=== PATIENT | male | born 1945 | race American Indian/Alaskan Native ===

== ENCOUNTER 2016-04-30 15:44 | Inpatient (IN) | payer MEDICARE ==
[2016-04-30 17:36] LABS: Basophils % (Auto) 0.8 % (0.0-1.8); Eosinophils % (Auto) 0.6 % (0.0-4.3); Hematocrit 33.8 % (35.5-45.6); Hemoglobin 10.9 gm/dl (11.8-15.2); Mean Corpuscular HGB Conc 32 % (32-34); Mean Corpuscular Hemoglobin 39 pg (28-32); Platelet Count 257 K/mm3 (140-440); Red Blood Count 2.77 M/mm3 (3.65-5.03); White Blood Count 5.1 K/mm3 (4.5-11.0)
[2016-04-30 17:44] LABS: Mean Corpuscular Volume 122 fl (84-94); Red Cell Distribution Width 23.1 % (13.2-15.2)
[2016-04-30 17:52] LABS: Anion Gap 23 mmol/L; Blood Urea Nitrogen 21 mg/dL (9-20); Calcium 8.4 mg/dL (8.4-10.2); Carbon Dioxide 21 mmol/L (22-30); Chloride 105.6 mmol/L (98-107); Glucose 184 mg/dL (75-100); Sodium 145 mmol/L (137-145)
[2016-04-30 18:22] LABS: Bilirubin,Urine NEG (Negative); Blood,Urine NEG (Negative); Ketones,Urine NEG (Negative); Leukocyte Esterase,Urine NEG (Negative); Mucus,Urine 2+ /HPF; Nitrite,Urine NEG (Negative)
[2016-04-30] MEDS ORDERED: DILAUDID IV ONE (23:00)
[2016-04-30] MEDS ORDERED: NITRO-BID 2% TP ONE (23:20)
[2016-04-30] MEDS ORDERED: CATAPRES PO ONE (23:20)
--- NOTE | 2016-04-30 23:21 | Emergency Department Report ---
ED Shortness of Breath HPI - General Chief Complaint: Extremity Problem,Nontraumatic Stated Complaint: LEGS SWOLLEN Time Seen by Provider: 04/30/16 22:57 Source: patient Mode of arrival: Ambulatory Limitations: No Limitations - History of Present Illness Initial Comments: 70-year-old male with a past medical history hypertension presents to the hospital with lower extremity edema for several days. Patient has a history of hypertension but has been off all meds for several years. Patient complains of chronic shortness of breath with exertion and while sleeping. Patient sleeps on 4 pillows at night chronically. Contrary to triage patient denies chest pain to me but does complain of symptoms is 10 leg pain worse with palpation. No present nausea, vomiting, headache, or diaphoresis. Positive cough on occasion. PMD: None. - Related Data Allergies Allergy/AdvReac Type Severity Reaction Status Date / Time No Known Allergies Allergy Unverified 04/30/16 16:49 ED Review of Systems ROS: Stated complaint: LEGS SWOLLEN Other details as noted in HPI Comment: All other systems reviewed and negative Other: Constitutional: No fevers chills Eyes: No eye pain visual changes ENT: No ear pain or throat pain Neck: Denies pain Respiratory: Denies wheezing Cardiovascular: Denies chest pain, palpitations GI: Denies abdominal pain, nausea, vomiting, diarrhea : Denies dysuria, urinary frequency, or urgency Musculoskeletal: as per hpi Skin: Denies rash, lesions, erythema Neurologic: Denies headache, numbness, weakness Psychiatric: Denies suicidal ideation, hallucinations ED Past Medical Hx - Past Medical History Previous Medical History?: Yes Hx Hypertension: Yes - Surgical History Past Surgical History?: Yes Additional Surgical History: right leg - Social History Smoking Status: Current Every Day Smoker Substance Use Type: Alcohol ED Physical Exam - General Limitations: No Limitations - Other Other exam information: General: No limitations, patient is alert in no acute distress Head exam: Atraumatic, normocephalic Eyes exam: Normal appearance, pupils equal reactive to light, extraocular movements intact ENT: Moist mucous membrane, normal oropharynx Neck exam: Normal inspection, full range of motion, no meningismus nontender Respiratory exam: No tachypnea or accessory muscle use. Diminished breath sounds right base crackles on the right base Cardiovascular: Normal rate and rhythm, normal heart sounds Abdomen: Soft, nondistended, and nontender, with normal bowel sounds, no rebound, or guarding Extremity: Full range of motion, 2+ pitting edema extending upward to the knee. Back: Normal Inspection, full range of motion, no tenderness Neurologic: Alert, oriented x3, cranial nerves intact, no motor or sensory deficit Psychiatric: normal affect, normal mood Skin: Warm, dry, intact ED Course Vital Signs 04/30/16 16:42 Pulse Rate 95 H Respiratory 20 Rate Blood Pressure 182/125 O2 Sat by Pulse 100 Oximetry - Reevaluation(s) Reevaluation #1: 05/01/16 00:24 Patient treated with nitroglycerin paste, clonidine 0.1 mg by mouth, and Lasix 40 mg IV ED Medical Decision Making - Lab Data Result diagrams: 04/30/16 17:16 04/30/16 17:16 Lab Results 04/30/16 04/30/16 04/30/16 Range/Units 17:08 17:16 17:16 WBC 5.1 (4.5-11.0) K/mm3 RBC 2.77 L (3.65-5.03) M/mm3 Hgb 10.9 L (11.8-15.2) gm/dl Hct 33.8 L (35.5-45.6) % MCV 122 H (84-94) fl MCH 39 H (28-32) pg MCHC 32 (32-34) % RDW 23.1 H (13.2-15.2) % Plt Count 257 (140-440) K/mm3 Lymph % (Auto) 32.2 (13.4-35.0) % [place] % (Auto) 7.0 (0.0-7.3) % Eos % (Auto) 0.6 (0.0-4.3) % Baso % (Auto) 0.8 (0.0-1.8) % Lymph # 1.7 (1.2-5.4) K/mm3 [place] # 0.4 (0.0-0.8) K/mm3 Eos # 0.0 (0.0-0.4) K/mm3 Baso # 0.0 (0.0-0.1) K/mm3 Seg Neutrophils % 59.4 (40.0-70.0) % Seg Neutrophils # 3.0 (1.8-7.7) K/mm3 Sodium 145 (137-145) mmol/L Potassium 5.0 (3.6-5.0) mmol/L Chloride 105.6 (98-107) mmol/L Carbon Dioxide 21 L (22-30) mmol/L Anion Gap 23 mmol/L BUN 21 H (9-20) mg/dL Creatinine 1.5 (0.8-1.5) mg/dL Estimated GFR 46 ml/min BUN/Creatinine Ratio 14.00 % Glucose 184 H (75-100) mg/dL Calcium 8.4 (8.4-10.2) mg/dL Troponin T < 0.010 (0.00-0.029) ng/mL NT-Pro-B Natriuret Pep 55484 H (0-900) pg/mL Urine Color Dark yellow (Yellow) Urine Turbidity Clear (Clear) Urine pH 5.0 (5.0-7.0) Ur Specific [place] 1.031 H (1.003-1.030) Urine Protein 100 mg/dl (Negative) mg/dL Urine Glucose (UA) Neg (Negative) mg/dL Urine Ketones Neg (Negative) mg/dL Urine Blood Neg (Negative) Urine Nitrite Neg (Negative) Urine Bilirubin Neg (Negative) Urine Urobilinogen 2.0 (<2.0) mg/dL Ur Leukocyte Esterase Neg (Negative) Urine WBC (Auto) 1.0 (0.0-6.0) /HPF Urine RBC (Auto) 3.0 (0.0-6.0) /HPF U Epithel Cells (Auto) < 1.0 (0-13.0) /HPF Urine Mucus 2+ /HPF - EKG Data -: EKG Interpreted by Me (sinus 93 lateral T wave inversions septal Q waves incomplete RBBB) - EKG Data When compared to previous EKG there are: previous EKG unavailable - Radiology Data Radiology results: image reviewed (chest x-ray: Increased interstitial markings) - Medical Decision Making Patient admitted to the hospital for treatment for new onset CHF in the context of noncompliance and chronically has treated hypertension. - Differential Diagnosis abdomen stable angina, CHF, pneumonia, bronchitis Critical Care Time: No Critical care attestation.: If time is entered above; I have spent that time in minutes in the direct care of this critically ill patient, excluding procedure time. ED Disposition Clinical Impression: Acute CHF, HTN (hypertension), Noncompliance with medication regimen Disposition: OP ADMITTED IP TO THIS HOSP Is pt being admited?: Yes Condition: Stable Time of Disposition: 23:21 (Dr Townsend/hosp)
[2016-04-30] MEDS ORDERED: LASIX IV ONE (23:53)
--- NOTE | 2016-04-30 23:55 | History and Physical Report ---
History of Present Illness Date of examination: 04/30/16 Date of admission: 04/30/16 23:21 Chief complaint: Difficulty breathing History of present illness: This is a 70 y/o male with history of hypertension not on any oral medications presented with lower extremity edema for several days. Patient has a history of hypertension but has been off all meds for several years. Patient complains of chronic shortness of breath with exertion and while sleeping. Patient sleeps on 4 pillows at night chronically. No present nausea, vomiting, headache, or diaphoresis. BP on presentation to the ER was 182/125. He states that he has not seen a doctor or taken any medication for blood pressure in several years. Troponin negative. BNP 03885. BUN 21 with a creatinine of 1.5. He states he had a cardiac cath approximately 15 years ago and thinks they may have "fixed blockages" but details are unclear. Past medical History: h/o hypertension Past surgical History: None Social History: Lives with family, denies drinking and elicit drug abuse. positive for smoking. Family History: Significant for unknown cancer in mother Review of System: Constitutional: no fever, no chills, no weight loss Ears, eyes, nose, mouth and throat: no nasal congestion, no nasal discharge, no sinus pressure, no vision change, no red eye. Neck: No neck pain or rigidity. Cardiovascular: No chest pain, + orthopnea, no palpitations, + leg swelling Respiratory: Positive shortness of breath, no cough, no congestion, no wheezing Gastrointestinal: no abdominal pain, no nausea, no vomiting Genitourinary : no dysuria, no hematuria Musculoskeletal: no joint swelling or muscle ache Integumentary: no rash, no pruritis Neurological: no parathesias, no numbness, no tingling Endocrine: no cold or heat intolerance, no polyuria or polydipsia Hematologic/Lymphatic: no easy bruising, no easy bleeding, no gland swelling Allergic/Immunologic: no urticaria, no angioedema. Medications and Allergies Allergies Allergy/AdvReac Type Severity Reaction Status Date / Time No Known Allergies Allergy Unverified 04/30/16 16:49 Home Medications Medication Instructions Recorded Confirmed Last Taken Type No Known Home Medications [No 05/01/16 05/01/16 Unknown History Reported Home Medications] Active Meds: Active Medications Enoxaparin Sodium (Lovenox) 40 mg SUB-Q QDAY YARELY Exam - Physical Exam Narrative exam: GENERAL: This is an elderly male lying on bed appeared to be in no discomfort. HEENT: Normocephalic. Atraumatic. Extraocular motions are intact. No conjunctival congestion or icterus. Patient has moist mucous membranes. External auditory canal and nares patent bilaterally. NECK: Supple. Trachea midline. No JVD, thyromagaly or lymphadenopathy. CHEST/LUNGS: There is no respiratory distress noted, breathing nonlabored. No wheezes or rhonchi. + crackles bibasilar area. HEART/CARDIOVASCULAR: Regular in rate and rhythm. PMI at the apex. There is no gallop rub or murmur. ABDOMEN: Abdomen is soft, nontender. Patient has normal bowel sounds. There is no abdominal distention. No organomagaly or rigidity. SKIN: There is no rash, no erythrema. There is no diaphoresis. Warm and dry. NEUROLOGY: The patient is awake, alert, and oriented. The patient is cooperative. The patient has normal speech. No focal motor deficit. MUSCULOSKELETAL: No joint effusion or tenderness. Muscle strength equal bilaterally. No muscle wasting. EXTRIMITY: 3+ pedal edema, cyanosis or clubbing. PSYCH: No depression or anxiety noted. Cooperative. - Constitutional Vitals: Temp Pulse Resp BP Pulse Ox 95 H 20 182/125 100 04/30/16 16:42 04/30/16 16:42 04/30/16 16:42 04/30/16 16:42 Results - Labs CBC & Chem 7: 04/30/16 17:16 05/01/16 14:26 Labs: Laboratory Last Values WBC 5.1 K/mm3 (4.5-11.0) 04/30/16 17:16 RBC 2.77 M/mm3 (3.65-5.03) L 04/30/16 17:16 Hgb 10.9 gm/dl (11.8-15.2) L 04/30/16 17:16 Hct 33.8 % (35.5-45.6) L 04/30/16 17:16 MCV 122 fl (84-94) H 04/30/16 17:16 MCH 39 pg (28-32) H 04/30/16 17:16 MCHC 32 % (32-34) 04/30/16 17:16 RDW 23.1 % (13.2-15.2) H 04/30/16 17:16 Plt Count 257 K/mm3 (140-440) 04/30/16 17:16 Lymph % (Auto) 32.2 % (13.4-35.0) 04/30/16 17:16 [place] % (Auto) 7.0 % (0.0-7.3) 04/30/16 17:16 Eos % (Auto) 0.6 % (0.0-4.3) 04/30/16 17:16 Baso % (Auto) 0.8 % (0.0-1.8) 04/30/16 17:16 Lymph # 1.7 K/mm3 (1.2-5.4) 04/30/16 17:16 [place] # 0.4 K/mm3 (0.0-0.8) 04/30/16 17:16 Eos # 0.0 K/mm3 (0.0-0.4) 04/30/16 17:16 Baso # 0.0 K/mm3 (0.0-0.1) 04/30/16 17:16 Seg Neutrophils % 59.4 % (40.0-70.0) 04/30/16 17:16 Seg Neutrophils # 3.0 K/mm3 (1.8-7.7) 04/30/16 17:16 Sodium 145 mmol/L (137-145) 04/30/16 17:16 Potassium 5.0 mmol/L (3.6-5.0) 04/30/16 17:16 Chloride 105.6 mmol/L (98-107) 04/30/16 17:16 Carbon Dioxide 21 mmol/L (22-30) L 04/30/16 17:16 Anion Gap 23 mmol/L 04/30/16 17:16 BUN 21 mg/dL (9-20) H 04/30/16 17:16 Creatinine 1.5 mg/dL (0.8-1.5) 04/30/16 17:16 Estimated GFR 46 ml/min 04/30/16 17:16 BUN/Creatinine Ratio 14.00 % 04/30/16 17:16 Glucose 184 mg/dL (75-100) H 04/30/16 17:16 Calcium 8.4 mg/dL (8.4-10.2) 04/30/16 17:16 Troponin T < 0.010 ng/mL (0.00-0.029) 04/30/16 17:16 NT-Pro-B Natriuret Pep 02883 pg/mL (0-900) H 04/30/16 17:16 Urine Color Dark yellow (Yellow) 04/30/16 17:08 Urine Turbidity Clear (Clear) 04/30/16 17:08 Urine pH 5.0 (5.0-7.0) 04/30/16 17:08 Ur Specific [place] 1.031 (1.003-1.030) H 04/30/16 17:08 Urine Protein 100 mg/dl mg/dL (Negative) 04/30/16 17:08 Urine Glucose (UA) Neg mg/dL (Negative) 04/30/16 17:08 Urine Ketones Neg mg/dL (Negative) 04/30/16 17:08 Urine Blood Neg (Negative) 04/30/16 17:08 Urine Nitrite Neg (Negative) 04/30/16 17:08 Urine Bilirubin Neg (Negative) 04/30/16 17:08 Urine Urobilinogen 2.0 mg/dL (<2.0) 04/30/16 17:08 Ur Leukocyte Esterase Neg (Negative) 04/30/16 17:08 Urine WBC (Auto) 1.0 /HPF (0.0-6.0) 04/30/16 17:08 Urine RBC (Auto) 3.0 /HPF (0.0-6.0) 04/30/16 17:08 U Epithel Cells (Auto) < 1.0 /HPF (0-13.0) 04/30/16 17:08 Urine Mucus 2+ /HPF 04/30/16 17:08 - Imaging and Cardiology Chest x-ray: report reviewed (pulmonary congestion) Assessment and Plan Assessment and plan: New onset CHF Malignant hypertension SHELBI, likley dehydration Tobacco abuse Plan: Admit to medicine, place on IV lasix Place on aspirin, statin, beta tj and ACEI As needed IV hydralazine Obtain 2-D echo, cardiology consult Monitor troponin, monitor renal function GI and DVT prophylaxis counselled for smoking cessation It took me about 45 minutes for initial care of this patient including history and physical, reviewing initial lab results and ER documents, placing admission orders, bedside counseling and coordination of care. Advance Directives: Yes VTE prophylaxis?: Chemical Plan of care discussed with patient/family: Yes
[2016-05-01] MEDS ORDERED: NITRO-BID 2% TP ONE (00:05)
[2016-05-01] MEDS ORDERED: CATAPRES ONE (00:05)
[2016-05-01] MEDS ORDERED: LASIX ONE (00:21)
[2016-05-01] MEDS ORDERED: NITROSTAT SL PRN (00:32)
[2016-05-01] MEDS ORDERED: APRESOLINE IV PRN (00:42)
[2016-05-01] MEDS: LASIX IV SCH ×2 (06:03→18:14)
[2016-05-01] MEDS: PROTONIX PO SCH ×2 (08:42→11:18)
[2016-05-01] MEDS: COZAAR PO SCH ×2 (08:42→11:18)
[2016-05-01] MEDS: ASPIRIN PO SCH ×2 (08:42→11:18)
[2016-05-01] MEDS: LOVENOX SUB-Q SCH ×2 (08:42→11:18)
[2016-05-01] MEDS: COREG PO SCH ×3 (08:42→21:39)
--- NOTE | 2016-05-01 09:17 | Consultation ---
History of Present Illness Consult date: 05/01/16 Requesting physician: ANTONI TRUONG Consult reason: congestive heart failure History of present illness: The patient is a 70 year old male with a history of hypertension, tobacco abuse who presented with complaints of worsening shortness of breath and lower extremity edema over the past several days. He denies any chest pain, palpitations, nausea, vomiting or diaphoresis. BP on presentation to the ER was 182/125. He states that he has not seen a doctor or taken any medication for blood pressure in several years. Troponin negative. BNP 92780. BUN 21 with a creatinine of 1.5. He states he had a cardiac cath approximately 15 years ago and thinks they may have "fixed blockages" but details are unclear. No previous history of heart failure. Past History Past Medical History: hypertension Past Surgical History: Other (leg surgery) Social history: , smoking (smokes 1 pack per week). denies: alcohol abuse, prescription drug abuse, IV drug use Family history: no significant family history Medications and Allergies Allergies Allergy/AdvReac Type Severity Reaction Status Date / Time No Known Allergies Allergy Unverified 04/30/16 16:49 Home Medications Medication Instructions Recorded Confirmed Last Taken Type No Known Home Medications [No 05/01/16 05/01/16 Unknown History Reported Home Medications] Active Meds: Active Medications Aspirin (Aspirin) 325 mg PO QDAY [facility] Last Admin: 05/01/16 08:42 Dose: 325 mg Carvedilol (Coreg) 6.25 mg PO BID [facility] Last Admin: 05/01/16 08:42 Dose: 6.25 mg Enoxaparin Sodium (Lovenox) 40 mg SUB-Q QDAY [facility] Last Admin: 05/01/16 08:42 Dose: 40 mg Furosemide (Lasix) 40 mg IV BID@0600,1800 [facility] Last Admin: 05/01/16 06:03 Dose: 40 mg Hydralazine HCl (Apresoline) 5 mg IV Q30MIN PRN PRN Reason: Hypertension Last Admin: 05/01/16 02:27 Dose: 5 mg Losartan Potassium (Cozaar) 50 mg PO QDAY [facility] Last Admin: 05/01/16 08:42 Dose: 50 mg Morphine Sulfate (Morphine) 2 mg IV Q5MIN PRN PRN Reason: For Chest Pain Nitroglycerin (Nitrostat) 0.4 mg SL .Q5MIN PRN PRN Reason: Chest Pain Pantoprazole Sodium (Protonix) 20 mg PO QDAY YARELY Last Admin: 05/01/16 08:42 Dose: 20 mg Review of Systems Constitutional: no fever, no chills Ears, nose, mouth and throat: no nasal congestion, no nasal discharge, no sinus pressure Cardiovascular: orthopnea, shortness of breath, dyspnea on exertion, leg edema, no chest pain Respiratory: shortness of breath, dyspnea on exertion, no congestion, no wheezing Gastrointestinal: no abdominal pain, no nausea, no vomiting, no diarrhea Genitourinary Male: no dysuria, no hematuria Musculoskeletal: no neck stiffness, no neck pain Integumentary: no rash, no pruritis Neurological: no parathesias, no numbness, no tingling, no headaches Endocrine: no cold intolerance, no heat intolerance Hematologic/Lymphatic: no easy bruising, no easy bleeding Allergic/Immunologic: no urticaria, no wheezing Physical Examination Vital Signs Pulse Resp BP Pulse Ox 95 H 20 182/125 100 04/30/16 16:42 04/30/16 16:42 04/30/16 16:42 04/30/16 16:42 General appearance: no acute distress HEENT: Positive: Normocephaly, Mucus Membranes Moist Neck: Positive: neck supple, trachea midline Cardiac: Positive: Reg Rate and Rhythm, S1/S2 Lungs: Positive: Decreased Breath Sounds (bilateral bases) Neuro: Positive: Grossly Intact Abdomen: Positive: Soft, Active Bowel Sounds. Negative: Tender Skin: Negative: Rash Extremities: Present: +2 Edema (bilateral lower legs) Results 04/30/16 17:16 04/30/16 17:16 - Imaging and Cardiology Echo: pending EKG: image reviewed EKG interpretations - Telemetry EKG Rhythm: Sinus Rhythm - EKG Sinus rhythms and dysrhythmias: sinus rhythm AV and intraventricular conduction: right bundle branch block QRS axis and voltage: left axis deviation Repolarization changes or abnormalities: ST or T wave suggestive of ischemia Myocardial infarction: septal ND (old age or ind, anterior ND (old age or i Assessment and Plan Acute systolic heart failure EF ~ 25%, await final echo report continue IV lasix, monitor renal indices continue coreg, losartan Cardiomyopathy new diagnosis ischemic evaluation when clinically stable Accelerated hypertension BP improved Renal insufficiency cautious diuresis monitor renal indices Anemia Tobacco abuse Agree with current regimen. Continue close monitoring of volume status and renal indices. The patient has been seen in conjunction with Dr. Duran who agrees with the assessment and plan of care.
--- NOTE | 2016-05-01 09:23 | Admit Criteria Form ---
Admission Criteria Documentation: HEART FAILURE: COMMON COMPLICATIONS Clinical Indications for Inpatient Care (Place 'X' for any and all applicable criteria): Ongoing inpatient care may be indicated for heart failure with ANY ONE of the following (1)(2)(3)(4)(5): [ ]I. Ongoing need for care for primary condition requiring frequent therapy adjustments because of changes in cardiac function (eg, drug dosage changes for drugs that are renally metabolized) [X ]II. New-onset heart failure [ ]III. Heart failure with decreased urine output not responsive to attempts to optimize volume status [ ]IV. Acute cardiac ischemia causing or associated with failure [ X]V. Complications of heart failure, including ANY ONE of the following: [ ]a) Pericardial effusion [ ]b) Symptomatic pleural effusion [ ]c) O2 saturation <90% or PO2 < 60 mm Hg (8.0 kPa) on room air or require baseline supplemental O2 [ ]d) Tachypnea [X ]e) Dyspnea [ ]f) Syncope [ ]g) Change in mental status [ ]h) Acute renal insufficiency that is severe (reduction of more than 50% in estimated glomerular filtration rate from baseline) or progressive reduction of more than 25% in estimated glomerular filtration rate from baseline, with creatinine continuing to rise) [ ]i) Hemodynamic instability [ ]j) Anasarca [ ]k) Clinically significant metabolic abnormalities due to heart failure (eg, new-onset metabolic acidosis) Extended stay beyond goal length of stay for primary condition may be needed until ALL of the following are present(1)(3): [ ]a) Stable and effective diuretic regimen established (or patient on stable dialysis regimen if in chronic renal failure) [ ]b) Breathing comfortably at rest [ ]c) Saturation of arterial oxygen greater than 90% or at acceptable baseline [ ]d) Pulmonary edema absent or improved [ ]e) Hemodynamic stability [ ]f) Volume status acceptable on oral medication [ ]g) Peripheral or sacral edema absent or improved [ ]h) Renal function stable and manageable at a lower level of care [ ]i) Complications (eg, pleural effusion) resolved or manageable at a lower level of care [ ]j) Patient or caregiver has received written discharge instructions or educational material addressing activity level, diet, discharge medications, follow-up appointment, weight monitoring, and what to do if symptoms worsen The original [employer] content created by [employer] has been revised. The portions of the content which have been revised are identified through the use of italic text or in bold, and [facility] has neither reviewed nor approved the modified material.All other unmodified content is copyright [facility]. Please see references footnoted in the original [facility] edition 2016 Admission Criteria Met: Yes
--- NOTE | 2016-05-01 09:23 | XRay Report ---
Chest 2 views: History: Shortness of breath. Findings: Marked cardiomegaly. Trachea midline. Pulmonary vascular congestion bilateral edema and occipital lobes. No definite consolidation. CP angles appear to be clear. Impression: Probable early CHF
[2016-05-01] MEDS ORDERED: K-DUR PO SCH (10:00)
[2016-05-01 15:06] LABS: BUN/Creatinine Ratio 18.33; Blood Urea Nitrogen 22 mg/dL (9-20); Calcium 8.7 mg/dL (8.4-10.2); Carbon Dioxide 29 mmol/L (22-30); Chloride 100.9 mmol/L (98-107); Glucose 95 mg/dL (75-100); Potassium 4.1 mmol/L (3.6-5.0); Sodium 143 mmol/L (137-145)
[2016-05-01 15:09] LABS: Anion Gap 17 mmol/L
--- NOTE | 2016-05-01 17:02 | Progress Note ---
Assessment and Plan Assessment and plan: Acute systolic heart failure - Ejection fraction 25% - IV Lasix, BB and ACEI - Echo done this morning Cardiomyopathy - ischemic evaluation Accelerated hypertension - Bp is well controlled Renal insufficiency - improved Anemia Tobacco abuse - Counselled. Prophylaxis - Lovenox Disposition - will continue inpatient care. History Interval history: Patient was seen and evaluated after he came back from Echo. He said he breath better, chest pain. Hospitalist Physical - Physical exam Narrative exam: Not in cardiopulmonary distress. The patient appeared well nourished and normally developed. Vital signs as documented. Head exam is unremarkable. No scleral icterus . Neck is without jugular venous distension, thyromegaly, or carotid bruits. Lungs are clear to auscultation. Cardiac exam reveals regular rate and Rhythm. Abdominal exam reveals normal bowel sounds, no masses, no organomegaly and no aortic enlargement. Extremities +2 pedal and pretibial edema. [employer]: Alert and oriented 3. No focal weakness. - Constitutional Vitals: Temp Pulse Resp BP Pulse Ox 97.4 F L 80 20 141/104 96 05/01/16 11:51 05/01/16 11:51 05/01/16 11:51 05/01/16 11:51 05/01/16 11:51 General appearance: Present: no acute distress Results - Labs CBC & Chem 7: 04/30/16 17:16 05/01/16 14:26 Labs: Laboratory Last Values WBC 5.1 K/mm3 (4.5-11.0) 04/30/16 17:16 RBC 2.77 M/mm3 (3.65-5.03) L 04/30/16 17:16 Hgb 10.9 gm/dl (11.8-15.2) L 04/30/16 17:16 Hct 33.8 % (35.5-45.6) L 04/30/16 17:16 MCV 122 fl (84-94) H 04/30/16 17:16 MCH 39 pg (28-32) H 04/30/16 17:16 MCHC 32 % (32-34) 04/30/16 17:16 RDW 23.1 % (13.2-15.2) H 04/30/16 17:16 Plt Count 257 K/mm3 (140-440) 04/30/16 17:16 Lymph % (Auto) 32.2 % (13.4-35.0) 04/30/16 17:16 [place] % (Auto) 7.0 % (0.0-7.3) 04/30/16 17:16 Eos % (Auto) 0.6 % (0.0-4.3) 04/30/16 17:16 Baso % (Auto) 0.8 % (0.0-1.8) 04/30/16 17:16 Lymph # 1.7 K/mm3 (1.2-5.4) 04/30/16 17:16 [place] # 0.4 K/mm3 (0.0-0.8) 04/30/16 17:16 Eos # 0.0 K/mm3 (0.0-0.4) 04/30/16 17:16 Baso # 0.0 K/mm3 (0.0-0.1) 04/30/16 17:16 Seg Neutrophils % 59.4 % (40.0-70.0) 04/30/16 17:16 Seg Neutrophils # 3.0 K/mm3 (1.8-7.7) 04/30/16 17:16 Sodium 143 mmol/L (137-145) 05/01/16 14:26 Potassium 4.1 mmol/L (3.6-5.0) 05/01/16 14:26 Chloride 100.9 mmol/L (98-107) 05/01/16 14:26 Carbon Dioxide 29 mmol/L (22-30) D 05/01/16 14:26 Anion Gap 17 mmol/L 05/01/16 14:26 BUN 22 mg/dL (9-20) H 05/01/16 14:26 Creatinine 1.2 mg/dL (0.8-1.5) 05/01/16 14:26 Estimated GFR > 60 ml/min 05/01/16 14:26 BUN/Creatinine Ratio 18.33 % 05/01/16 14:26 Glucose 95 mg/dL (75-100) 05/01/16 14:26 Calcium 8.7 mg/dL (8.4-10.2) 05/01/16 14:26 Troponin T < 0.010 ng/mL (0.00-0.029) 04/30/16 17:16 NT-Pro-B Natriuret Pep 58217 pg/mL (0-900) H 04/30/16 17:16 Urine Color Dark yellow (Yellow) 04/30/16 17:08 Urine Turbidity Clear (Clear) 04/30/16 17:08 Urine pH 5.0 (5.0-7.0) 04/30/16 17:08 Ur Specific [place] 1.031 (1.003-1.030) H 04/30/16 17:08 Urine Protein 100 mg/dl mg/dL (Negative) 04/30/16 17:08 Urine Glucose (UA) Neg mg/dL (Negative) 04/30/16 17:08 Urine Ketones Neg mg/dL (Negative) 04/30/16 17:08 Urine Blood Neg (Negative) 04/30/16 17:08 Urine Nitrite Neg (Negative) 04/30/16 17: Urine Bilirubin Neg (Negative) 04/30/16 17:08 Urine Urobilinogen 2.0 mg/dL (<2.0) 04/30/16 17:08 Ur Leukocyte Esterase Neg (Negative) 04/30/16 17:08 Urine WBC (Auto) 1.0 /HPF (0.0-6.0) 04/30/16 17:08 Urine RBC (Auto) 3.0 /HPF (0.0-6.0) 04/30/16 17:08 U Epithel Cells (Auto) < 1.0 /HPF (0-13.0) 04/30/16 17:08 Urine Mucus 2+ /HPF 04/30/16 17:08 - Imaging and Cardiology Chest x-ray: image reviewed (pulmonary congestion)
[2016-05-02 05:59] LABS: Anion Gap 15 mmol/L; BUN/Creatinine Ratio 15.83; Blood Urea Nitrogen 19 mg/dL (9-20); Calcium 8.4 mg/dL (8.4-10.2); Carbon Dioxide 27 mmol/L (22-30); Chloride 102.3 mmol/L (98-107); Glucose 79 mg/dL (75-100); Magnesium 1.7 mg/dL (1.7-2.3); Potassium 3.3 mmol/L (3.6-5.0); Sodium 141 mmol/L (137-145)
[2016-05-02] MEDS: LASIX IV SCH (06:07)
[2016-05-02] MEDS: ASPIRIN PO SCH (10:29)
[2016-05-02] MEDS: K-DUR PO SCH (10:29)
[2016-05-02] MEDS: LOVENOX SUB-Q SCH (10:29)
[2016-05-02] MEDS: COZAAR PO SCH (10:29)
[2016-05-02] MEDS: COREG PO SCH ×2 (10:30→21:49)
[2016-05-02] MEDS: PROTONIX PO SCH (10:30)
--- NOTE | 2016-05-02 11:05 | Progress Note ---
Assessment and Plan This is a pleasant 70yo AAM: 1. Acute systolic heart failure EF ~ 25%, await final echo report change lasix to po as pt near euvolemia continue coreg, losartan 2. Severe dilated cardiomyopathy new diagnosis [facility] on Wednesday (risks, benefits, and alternatives discussed with pt, , and daughter) Accelerated hypertension BP improved Renal insufficiency likely a component of cardiorenal syndrome improved cautious diuresis monitor renal indices Anemia Tobacco abuse Plan for [facility] wednesday change lasix to po supplement k My findings and plan of care were discussed at length with patient and family. All questions and concerns were addressed. Subjective Date of service: 05/02/16 Interval history: feels much better no cp/sob/palp Objective Vital Signs Temp Pulse Pulse Pulse Pulse Resp BP 05/02/16 10:30 78 128/75 05/02/16 09:42 97.9 F 72 18 05/02/16 04:50 97.9 F 77 20 05/02/16 00:58 98.1 F 77 18 05/01/16 22:33 76 05/01/16 22:12 97.7 F 83 18 05/01/16 22:00 05/01/16 16:51 98.3 F 85 20 05/01/16 11:51 97.4 F L 80 20 BP Pulse Ox 05/02/16 10:30 05/02/16 09:42 120/79 96 05/02/16 04:50 137/86 98 05/02/16 00:58 132/88 97 05/01/16 22:33 05/01/16 22:12 135/93 97 05/01/16 22:00 91 05/01/16 16:51 151/97 95 05/01/16 11:51 141/104 96 - Physical Examination HEENT: Positive: Normocephaly, Mucus Membranes Moist Neck: Positive: neck supple, trachea midline Neuro: Positive: Grossly Intact Abdomen: Positive: Soft, Active Bowel Sounds. Negative: Tender Skin: Negative: Rash Extremities: Present: +2 Edema (bilateral lower legs) - Labs and Meds Comprehensive Metabolic Panel 05/01/16 05/02/16 Range/Units 14:26 05:13 Sodium 143 141 (137-145) mmol/L Potassium 4.1 3.3 L (3.6-5.0) mmol/L Chloride 100.9 102.3 (98-107) mmol/L Carbon Dioxide 29 D 27 (22-30) mmol/L BUN 22 H 19 (9-20) mg/dL Creatinine 1.2 1.2 (0.8-1.5) mg/dL Glucose 95 79 (75-100) mg/dL Calcium 8.7 8.4 (8.4-10.2) mg/dL - Imaging and Cardiology EKG: image reviewed Echo: pending - EKG Sinus rhythms and dysrhythmias: sinus rhythm AV and intraventricular conduction: right bundle branch block QRS axis and voltage: left axis deviation Repolarization changes or abnormalities: ST or T wave suggestive of ischemia Myocardial infarction: septal [place] (old age or ind, anterior [place] (old age or i
--- NOTE | 2016-05-02 16:44 | Progress Note ---
Assessment and Plan Assessment and plan: Acute systolic heart failure - Ejection fraction 25% - decrease IV Lasix to 40 mg IV daily - Continue BB and ACEI - Echo done this morning - Will cardiac cath on wednesday Cardiomyopathy - ischemic evaluation - Cardiac cath on Wednesday Accelerated hypertension - Bp is well controlled Renal insufficiency - improved Anemia Tobacco abuse - Counselled. Prophylaxis - Lovenox Disposition - will continue inpatient care. History Interval history: Patient was seen and evaluated. He said he breath better, no chest pain. Hospitalist Physical - Physical exam Narrative exam: Not in cardiopulmonary distress. The patient appeared well nourished and normally developed. Vital signs as documented. Head exam is unremarkable. No scleral icterus . Neck is without jugular venous distension, thyromegaly, or carotid bruits. Lungs are clear to auscultation. Cardiac exam reveals regular rate and Rhythm. Abdominal exam reveals normal bowel sounds, no masses, no organomegaly and no aortic enlargement. Extremities no edema. 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 No focal weakness. - Constitutional Vitals: Temp Pulse Resp BP Pulse Ox 97.9 F 78 18 128/75 96 05/02/16 09:42 05/02/16 10:30 05/02/16 10:00 05/02/16 10:30 05/02/16 10:00 General appearance: Present: no acute distress Results - Labs CBC & Chem 7: 04/30/16 17:16 05/02/16 05:13 Labs: Laboratory Last Values WBC 5.1 K/mm3 (4.5-11.0) 04/30/16 17:16 RBC 2.77 M/mm3 (3.65-5.03) L 04/30/16 17:16 Hgb 10.9 gm/dl (11.8-15.2) L 04/30/16 17:16 Hct 33.8 % (35.5-45.6) L 04/30/16 17:16 MCV 122 fl (84-94) H 04/30/16 17:16 MCH 39 pg (28-32) H 04/30/16 17:16 MCHC 32 % (32-34) 04/30/16 17:16 RDW 23.1 % (13.2-15.2) H 04/30/16 17:16 Plt Count 257 K/mm3 (140-440) 04/30/16 17:16 Lymph % (Auto) 32.2 % (13.4-35.0) 04/30/16 17:16 [place] % (Auto) 7.0 % (0.0-7.3) 04/30/16 17:16 Eos % (Auto) 0.6 % (0.0-4.3) 04/30/16 17:16 Baso % (Auto) 0.8 % (0.0-1.8) 04/30/16 17:16 Lymph # 1.7 K/mm3 (1.2-5.4) 04/30/16 17:16 [place] # 0.4 K/mm3 (0.0-0.8) 04/30/16 17:16 Eos # 0.0 K/mm3 (0.0-0.4) 04/30/16 17:16 Baso # 0.0 K/mm3 (0.0-0.1) 04/30/16 17:16 Seg Neutrophils % 59.4 % (40.0-70.0) 04/30/16 17:16 Seg Neutrophils # 3.0 K/mm3 (1.8-7.7) 04/30/16 17:16 Sodium 141 mmol/L (137-145) 05/02/16 05:13 Potassium 3.3 mmol/L (3.6-5.0) L 05/02/16 05:13 Chloride 102.3 mmol/L (98-107) 05/02/16 05:13 Carbon Dioxide 27 mmol/L (22-30) 05/02/16 05:13 Anion Gap 15 mmol/L 05/02/16 05:13 BUN 19 mg/dL (9-20) 05/02/16 05:13 Creatinine 1.2 mg/dL (0.8-1.5) 05/02/16 05:13 Estimated GFR > 60 ml/min 05/02/16 05:13 BUN/Creatinine Ratio 15.83 % 05/02/16 05:13 Glucose 79 mg/dL (75-100) 05/02/16 05:13 Calcium 8.4 mg/dL (8.4-10.2) 05/02/16 05:13 Magnesium 1.7 mg/dL (1.7-2.3) 05/02/16 05:13 Troponin T < 0.010 ng/mL (0.00-0.029) 04/30/16 17:16 NT-Pro-B Natriuret Pep 78699 pg/mL (0-900) H 04/30/16 17:16 Urine Color Dark yellow (Yellow) 04/30/16 17:08 Urine Turbidity Clear (Clear) 04/30/16 17:08 Urine pH 5.0 (5.0-7.0) 04/30/16 17:08 Ur Specific [place] 1.031 (1.003-1.030) H 04/30/16 17:08 Urine Protein 100 mg/dl mg/dL (Negative) 04/30/16 17:08 Urine Glucose (UA) Neg mg/dL (Negative) 04/30/16 17:08 Urine Ketones Neg mg/dL (Negative) 04/30/16 17:08 Urine Blood Neg (Negative) 04/30/16 17:08 Urine Nitrite Neg (Negative) 04/30/16 17:08 Urine Bilirubin Neg (Negative) 04/30/16 17:08 Urine Urobilinogen 2.0 mg/dL (<2.0) 04/30/16 17:08 Ur Leukocyte Esterase Neg (Negative) 04/30/16 17:08 Urine WBC (Auto) 1.0 /HPF (0.0-6.0) 04/30/16 17:08 Urine RBC (Auto) 3.0 /HPF (0.0-6.0) 04/30/16 17:08 U Epithel Cells (Auto) < 1.0 /HPF (0-13.0) 04/30/16 17:08 Urine Mucus 2+ /HPF 04/30/16 17:08
[2016-05-02] MEDS: LASIX PO SCH ×2 (16:57→17:14)
[2016-05-03] MEDS: LASIX PO SCH ×2 (06:07→19:18)
[2016-05-03 06:54] LABS: Anion Gap 15 mmol/L; BUN/Creatinine Ratio 16.15; Blood Urea Nitrogen 21 mg/dL (9-20); Calcium 7.9 mg/dL (8.4-10.2); Carbon Dioxide 28 mmol/L (22-30); Chloride 101.6 mmol/L (98-107); Glucose 78 mg/dL (75-100); Potassium 3.8 mmol/L (3.6-5.0); Sodium 141 mmol/L (137-145)
[2016-05-03] MEDS: PROTONIX PO SCH (09:23)
[2016-05-03] MEDS: COREG PO SCH ×2 (09:23→22:23)
[2016-05-03] MEDS: COZAAR PO SCH (09:23)
[2016-05-03] MEDS: ASPIRIN PO SCH (09:23)
[2016-05-03] MEDS: K-DUR PO SCH (09:23)
[2016-05-03] MEDS: LOVENOX SUB-Q SCH (09:24)
[2016-05-03] MEDS ORDERED: LASIX IV SCH (10:00)
--- NOTE | 2016-05-03 11:30 | Progress Note ---
Assessment and Plan This is a pleasant 70yo AAM: 1. Acute systolic heart failure EF ~ 25% change lasix to po as pt near euvolemia continue coreg, losartan 2. Severe dilated cardiomyopathy new diagnosis [facility] on Wednesday (risks, benefits, and alternatives discussed with pt, , and daughter) 3. Accelerated hypertension BP improved 4. Renal insufficiency likely a component of cardiorenal syndrome improved cautious diuresis monitor renal indices 5. Anemia 6. Tobacco abuse 7. NSVT (17 beat run yesterday) cont bb lytes optimized Plan for [facility] wednesday My findings and plan of care were discussed at length with patient and family. All questions and concerns were addressed. Subjective Date of service: 05/03/16 Interval history: feels much better no cp/sob/palp Objective Vital Signs Temp Pulse Pulse Pulse Pulse Pulse Resp 05/03/16 10:45 79 05/03/16 09:40 98.5 F 71 18 05/03/16 09:27 76 74 18 05/03/16 09:23 76 05/03/16 05:44 98.1 F 77 18 05/03/16 01:09 98.2 F 81 20 05/02/16 22:00 79 05/02/16 21:49 80 05/02/16 20:43 98.9 F 80 18 05/02/16 20:28 05/02/16 17:35 98.0 F 78 18 BP BP Pulse Ox 05/03/16 10:45 05/03/16 09:40 136/80 97 05/03/16 09:27 05/03/16 09:23 122/70 05/03/16 05:44 133/94 98 05/03/16 01:09 132/82 98 05/02/16 22:00 05/02/16 21:49 130/82 05/02/16 20:43 130/82 97 05/02/16 20:28 98 05/02/16 17:35 117/76 99 - Physical Examination HEENT: Positive: Normocephaly, Mucus Membranes Moist Neck: Positive: neck supple, trachea midline Neuro: Positive: Grossly Intact Abdomen: Positive: Soft, Active Bowel Sounds. Negative: Tender Skin: Negative: Rash Extremities: Present: +2 Edema (bilateral lower legs) - Labs and Meds Comprehensive Metabolic Panel 05/03/16 Range/Units 05:30 Sodium 141 (137-145) mmol/L Potassium 3.8 (3.6-5.0) mmol/L Chloride 101.6 (98-107) mmol/L Carbon Dioxide 28 (22-30) mmol/L BUN 21 H (9-20) mg/dL Creatinine 1.3 (0.8-1.5) mg/dL Glucose 78 (75-100) mg/dL Calcium 7.9 L (8.4-10.2) mg/dL - Imaging and Cardiology EKG: image reviewed Echo: pending - EKG Sinus rhythms and dysrhythmias: sinus rhythm AV and intraventricular conduction: right bundle branch block QRS axis and voltage: left axis deviation Repolarization changes or abnormalities: ST or T wave suggestive of ischemia Myocardial infarction: septal [place] (old age or ind, anterior [place] (old age or i
--- NOTE | 2016-05-03 16:11 | Progress Note ---
Assessment and Plan Assessment and plan: Acute systolic heart failure - Ejection fraction 25% - decrease IV Lasix to 40 mg IV daily - Continue BB and ACEI - Echo done this morning - Will cardiac cath on wednesday Cardiomyopathy - ischemic evaluation - Cardiac cath tomorrow Accelerated hypertension - Bp is well controlled Renal insufficiency - improved Anemia Tobacco abuse - Counselled. Prophylaxis - Lovenox Disposition - And cardiac cath History Interval history: Patient was seen and evaluated. He said he breath better, no chest pain. Hospitalist Physical - Physical exam Narrative exam: Not in cardiopulmonary distress. The patient appeared well nourished and normally developed. Vital signs as documented. Head exam is unremarkable. No scleral icterus . Neck is without jugular venous distension, thyromegaly, or carotid bruits. Lungs are clear to auscultation. Cardiac exam reveals regular rate and Rhythm. Abdominal exam reveals normal bowel sounds, no masses, no organomegaly and no aortic enlargement. Extremities no edema. 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 No focal weakness. - Constitutional Vitals: Temp Pulse Resp BP Pulse Ox 98.5 F 79 18 136/80 96 05/03/16 09:40 05/03/16 10:45 05/03/16 09:40 05/03/16 09:40 05/03/16 10:00 General appearance: Present: no acute distress Results - Labs CBC & Chem 7: 04/30/16 17:16 05/03/16 05:30 Labs: Laboratory Last Values WBC 5.1 K/mm3 (4.5-11.0) 04/30/16 17:16 RBC 2.77 M/mm3 (3.65-5.03) L 04/30/16 17:16 Hgb 10.9 gm/dl (11.8-15.2) L 04/30/16 17:16 Hct 33.8 % (35.5-45.6) L 04/30/16 17:16 MCV 122 fl (84-94) H 04/30/16 17:16 MCH 39 pg (28-32) H 04/30/16 17:16 MCHC 32 % (32-34) 04/30/16 17:16 RDW 23.1 % (13.2-15.2) H 04/30/16 17:16 Plt Count 257 K/mm3 (140-440) 04/30/16 17:16 Lymph % (Auto) 32.2 % (13.4-35.0) 04/30/16 17:16 [place] % (Auto) 7.0 % (0.0-7.3) 04/30/16 17:16 Eos % (Auto) 0.6 % (0.0-4.3) 04/30/16 17:16 Baso % (Auto) 0.8 % (0.0-1.8) 04/30/16 17:16 Lymph # 1.7 K/mm3 (1.2-5.4) 04/30/16 17:16 [place] # 0.4 K/mm3 (0.0-0.8) 04/30/16 17:16 Eos # 0.0 K/mm3 (0.0-0.4) 04/30/16 17:16 Baso # 0.0 K/mm3 (0.0-0.1) 04/30/16 17:16 Seg Neutrophils % 59.4 % (40.0-70.0) 04/30/16 17:16 Seg Neutrophils # 3.0 K/mm3 (1.8-7.7) 04/30/16 17:16 Sodium 141 mmol/L (137-145) 05/03/16 05:30 Potassium 3.8 mmol/L (3.6-5.0) 05/03/16 05:30 Chloride 101.6 mmol/L (98-107) 05/03/16 05:30 Carbon Dioxide 28 mmol/L (22-30) 05/03/16 05:30 Anion Gap 15 mmol/L 05/03/16 05:30 BUN 21 mg/dL (9-20) H 05/03/16 05:30 Creatinine 1.3 mg/dL (0.8-1.5) 05/03/16 05:30 Estimated GFR > 60 ml/min 05/03/16 05:30 BUN/Creatinine Ratio 16.15 % 05/03/16 05:30 Glucose 78 mg/dL (75-100) 05/03/16 05:30 Calcium 7.9 mg/dL (8.4-10.2) L 05/03/16 05:30 Magnesium 1.7 mg/dL (1.7-2.3) 05/02/16 05:13 Troponin T < 0.010 ng/mL (0.00-0.029) 04/30/16 17:16 NT-Pro-B Natriuret Pep 90884 pg/mL (0-900) H 04/30/16 17:16 Urine Color Dark yellow (Yellow) 04/30/16 17:08 Urine Turbidity Clear (Clear) 04/30/16 17:08 Urine pH 5.0 (5.0-7.0) 04/30/16 17:08 Ur Specific [place] 1.031 (1.003-1.030) H 04/30/16 17:08 Urine Protein 100 mg/dl mg/dL (Negative) 04/30/16 17:08 Urine Glucose (UA) Neg mg/dL (Negative) 04/30/16 17:08 Urine Ketones Neg mg/dL (Negative) 04/30/16 17:08 Urine Blood Neg (Negative) 04/30/16 17:08 Urine Nitrite Neg (Negative) 04/30/16 17:08 Urine Bilirubin Neg (Negative) 04/30/16 17:08 Urine Urobilinogen 2.0 mg/dL (<2.0) 04/30/16 17:08 Ur Leukocyte Esterase Neg (Negative) 04/30/16 17:08 Urine WBC (Auto) 1.0 /HPF (0.0-6.0) 04/30/16 17:08 Urine RBC (Auto) 3.0 /HPF (0.0-6.0) 04/30/16 17:08 U Epithel Cells (Auto) < 1.0 /HPF (0-13.0) 04/30/16 17:08 Urine Mucus 2+ /HPF 04/30/16 17:08
[2016-05-04 05:33] LABS: INR 1.26 (0.87-1.13)
[2016-05-04 05:34] LABS: Partial Thromboplastin Time 32.6 Sec. (24.2-36.6)
[2016-05-04 05:38] LABS: Anion Gap 15 mmol/L; Blood Urea Nitrogen 22 mg/dL (9-20); Carbon Dioxide 28 mmol/L (22-30); Chloride 98.7 mmol/L (98-107); Glucose 88 mg/dL (75-100); Potassium 4.2 mmol/L (3.6-5.0); Sodium 137 mmol/L (137-145)
[2016-05-04] MEDS: LASIX PO SCH ×2 (06:07→20:23)
[2016-05-04] MEDS ORDERED: ECOTRIN PO ONE (07:45)
[2016-05-04] MEDS: ASPIRIN PO SCH ×2 (08:06→11:34)
[2016-05-04] MEDS ORDERED: NACL 0.9% 0 ML ONE (08:12)
[2016-05-04] MEDS ORDERED: ANGIOMAX IV ONE (08:13)
[2016-05-04] MEDS ORDERED: WATER FOR INJ (PF) 0 ML ONE (08:13)
[2016-05-04] MEDS ORDERED: MORPHINE ONE (08:15)
[2016-05-04] MEDS ORDERED: MORPHINE IV ONE (08:15)
[2016-05-04] MEDS: XYLOCAINE 2% INFILTRATI ONE ×2 (08:38→09:15)
[2016-05-04] MEDS: CALAN ONE ×2 (08:39→09:15)
[2016-05-04] MEDS: HEPARIN 10,000 UNITS/10 ML ONE ×2 (08:40→09:15)
[2016-05-04] MEDS: VERSED ONE ×2 (08:40→09:12)
[2016-05-04] MEDS: SUBLIMAZE ONE ×2 (08:41→09:12)
[2016-05-04] MEDS: NITROGLYCERIN SYRINGE 3 ML ONE ×2 (08:42→09:15)
[2016-05-04] MEDS: HEPARIN/NS 5000 UNIT/500ML(CATH LAB) 1,000 ML IR ONE ×2 (08:42→09:15)
[2016-05-04] MEDS: NACL 0.9% 250ML 250 ML ONE ×2 (08:42→09:15)
--- NOTE | 2016-05-04 09:56 | Discharge Summary ---
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 Hospitalization Reason for admission: Acute systolic CHF Condition: Stable Pertinent studies: Cardiac cath Disposition: DISCHARGED TO HOME OR SELFCARE Time spent for discharge: 31 minutes - Discharge Diagnoses (1) Acute CHF Status: Acute Qualifiers: Congestive heart failure type: C (2) HTN (hypertension) Status: Acute Qualifiers: Hypertension type: H (3) Noncompliance with medication regimen Status: Acute Core Measure Documentation - Palliative Care Palliative Care/ Comfort Measures: Not Applicable - Core Measures Any of the following diagnoses?: heart failure - Heart Failure Discharge Requirements RAMANDEEP/ARB for LVSD if EF <40%: Yes Beta tj at discharge: Yes Exam - Physical Exam Narrative exam: Not in cardiopulmonary distress. The patient appeared well nourished and normally developed. Vital signs as documented. Head exam is unremarkable. No scleral icterus . Neck is without jugular venous distension, thyromegaly, or carotid bruits. Lungs are clear to auscultation. Cardiac exam reveals regular rate and Rhythm. Abdominal exam reveals normal bowel sounds, no masses, no organomegaly and no aortic enlargement. Extremities no edema. 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 No focal weakness. - Constitutional Vitals: Temp Pulse Resp BP Pulse Ox 97.8 F 74 20 139/97 98 05/04/16 07:19 05/04/16 07:19 05/04/16 07:19 05/04/16 07:19 05/04/16 07:19 Plan Activity: no restrictions Weight Bearing Status: Full Weight Bearing Diet: low cholesterol, low salt Follow up with: VAIBHAV MASON MD [Staff Physician] - 14 Days PRIMARY CARE, [Primary Care Provider] - 7 Days (Please Check potassium in the office visit.) Prescriptions: Carvedilol [Coreg] 12.5 mg PO BID #60 tablet Furosemide [Lasix TAB] 40 mg PO DAILY #30 tablet Losartan [Cozaar] 100 mg PO QDAY #30 tablet Potassium Chloride [K-Dur] 10 meq PO QDAY #30 tablet Spironolactone [Aldactone] 25 mg PO QDAY #30 tablet
[2016-05-04] MEDS: LOVENOX SUB-Q SCH (10:00)
--- NOTE | 2016-05-04 10:01 | Progress Note ---
Assessment and Plan 1. Acute systolic heart failure EF ~ 25% lasix to po as pt near euvolemia continue coreg, losartan 2. Severe dilated cardiomyopathy new diagnosis [facility] on patent coronaries and ef 15% (risks, benefits, and alternatives discussed with pt, , and daughter) 3. Accelerated hypertension BP improved 4. Renal insufficiency acute likely a component of cardiorenal syndrome improved cautious diuresis monitor renal indices 5. Anemia 6. Tobacco abuse 7. NSVT (17 beat run yesterday) cont bb life vest, discuss with family in detail discussed with family in detail about the importance of smoking cessation , fluid and salt restriction and medication compliance Subjective Date of service: 05/04/16 Principal diagnosis: chf Interval history: pt is lying flat and no sob or chest pain Objective Vital Signs Temp Pulse Pulse Pulse Resp BP Pulse Ox 05/04/16 07:19 97.8 F 74 20 139/97 98 05/04/16 05:23 97.3 F L 76 18 134/90 100 05/04/16 01:07 97.5 F L 75 18 126/85 100 05/03/16 23:09 68 18 99 05/03/16 21:50 97.8 F 79 18 123/79 95 05/03/16 21:02 85 05/03/16 17:46 97.6 F 74 18 119/71 96 05/03/16 10:45 79 05/03/16 10:00 96 - Physical Examination General: No Apparent Distress HEENT: Positive: Normocephaly, Mucus Membranes Moist Neck: Positive: neck supple, trachea midline Cardiac: Positive: Reg Rate and Rhythm Lungs: Positive: clear to auscultation Neuro: Positive: Grossly Intact Abdomen: Positive: Soft, Active Bowel Sounds. Negative: Tender Skin: Negative: Rash Extremities: Absent: edema - Labs and Meds Coagulation 05/04/16 Range/Units 05:10 PT 15.7 H (12.2-14.9) Sec. INR 1.26 H (0.87-1.13) APTT 32.6 (24.2-36.6) Sec. Comprehensive Metabolic Panel 05/04/16 Range/Units 05:10 Sodium 137 (137-145) mmol/L Potassium 4.2 (3.6-5.0) mmol/L Chloride 98.7 (98-107) mmol/L Carbon Dioxide 28 (22-30) mmol/L BUN 22 H (9-20) mg/dL Creatinine 1.1 (0.8-1.5) mg/dL Glucose 88 (75-100) mg/dL Calcium 8.0 L (8.4-10.2) mg/dL - Imaging and Cardiology EKG: image reviewed Echo: pending Cardiac cath: report reviewed (patent coronaries and ef 15%) - Telemetry EKG Rhythm: Sinus Rhythm (wednesday sustained vtach 17 beats) - EKG Sinus rhythms and dysrhythmias: sinus rhythm AV and intraventricular conduction: right bundle branch block QRS axis and voltage: left axis deviation Repolarization changes or abnormalities: ST or T wave suggestive of ischemia Myocardial infarction: septal [place] (old age or ind, anterior [place] (old age or i
[2016-05-04] MEDS: MORPHINE IV PRN (10:39)
--- NOTE | 2016-05-04 10:39 | Cardiac Catherization Report ---
PROCEDURE: Left heart catheterization. REASON FOR PROCEDURE: Severe LV dysfunction. Left heart catheterization performed via the right radial artery, sterile technique, local anesthesia, 6-Stateless radial sheath inserted. FINDINGS: Left system engaged with JL3.5 catheter. 1. Left main large caliber vessel is patent, bifurcates into large LAD, is patent from proximally and distally with mild luminal irregularities. 2. Diagonal 1 is a medium caliber vessel that is patent. 3. Circumflex and AV groove is a medium caliber vessel. Proximal patent, mid 20%. 4. OM1 is a medium caliber vessel, OM2 is a medium caliber vessel that is patent. 5. RCA engaged with JR4 catheter, is a large dominant vessel, patent with mild luminal irregularities. 6. PDA and PLV are medium caliber vessels that are patent. LV gram done in [place] and [place] view shows severe LV dysfunction, EF 15%. LVEDP is 17 mmHg, LV is 135/17, aortic is 134/75. No gradient across the aortic valve on pullback. 5-Stateless catheters all taken over a guidewire. 6-Stateless radial sheath was discontinued. Radial dressing applied. No hematoma. No bleeding. SUMMARY: 1. This is nonischemic cardiomyopathy, EF less than 15%. 2. Normal left end-diastolic pressure. 3. Continue medical management. Coronary anatomy revealed left main patent, LAD patent, diagonal patent, circ mid 20%. OM1, OM2 patent. RCA large patent. [facility]# [id number] DENNIS/BREONNA
[2016-05-04] MEDS: COZAAR PO SCH (11:33)
[2016-05-04] MEDS: PROTONIX PO SCH (11:34)
[2016-05-04] MEDS: ALDACTONE PO SCH (11:34)
[2016-05-04] MEDS: COREG PO SCH ×2 (11:34→21:08)
[2016-05-04] MEDS: K-DUR PO SCH (11:34)
[2016-05-04] MEDS ORDERED: MILK OF MAGNESIA PO PRN (20:17)
[2016-05-05] MEDS: LASIX PO SCH ×2 (05:13→18:00)
[2016-05-05 06:16] LABS: Anion Gap 16 mmol/L; Blood Urea Nitrogen 21 mg/dL (9-20); Calcium 8.2 mg/dL (8.4-10.2); Carbon Dioxide 28 mmol/L (22-30); Chloride 96.4 mmol/L (98-107); Glucose 94 mg/dL (75-100); Potassium 4.6 mmol/L (3.6-5.0); Sodium 136 mmol/L (137-145)
[2016-05-05] MEDS: K-DUR PO SCH (10:30)
[2016-05-05] MEDS: COZAAR PO SCH (10:30)
[2016-05-05] MEDS: ASPIRIN PO SCH (10:30)
[2016-05-05] MEDS: ALDACTONE PO SCH (10:30)
[2016-05-05] MEDS: PROTONIX PO SCH (10:30)
[2016-05-05] MEDS: LOVENOX SUB-Q SCH (10:30)
[2016-05-05] MEDS: COREG PO SCH ×2 (10:30→22:53)
--- NOTE | 2016-05-05 11:38 | Progress Note ---
Assessment and Plan Continue current management. Await Lifevest placement. Follow up appointment with Dr. Armando Duran in the [place] office on 05/15/16 at 3:00pm. - Patient Problems (1) Acute systolic heart failure Current Visit: Yes Status: Acute (2) Non-ischemic cardiomyopathy Current Visit: Yes Status: Acute (3) NSVT (nonsustained ventricular tachycardia) Current Visit: Yes Status: Acute (4) Accelerated hypertension Current Visit: Yes Status: Resolved (5) Tobacco abuse Current Visit: Yes Status: Chronic Subjective Date of service: 05/05/16 Principal diagnosis: acute systolic heart failure Interval history: The patient is resting comfortably in bed. No new complaints. Sinus rhythm on the monitor. Objective Last Vital Signs Temp 98.0 F 05/05/16 09:59 Pulse 77 05/05/16 09:59 Resp 18 05/05/16 09:59 BP 106/73 05/05/16 09:59 Pulse Ox 96 05/05/16 09:59 - Physical Examination General: No Apparent Distress HEENT: Positive: Normocephaly, Mucus Membranes Moist Neck: Positive: neck supple, trachea midline Cardiac: Positive: Reg Rate and Rhythm, S1/S2 Neuro: Positive: Grossly Intact Abdomen: Positive: Soft, Active Bowel Sounds. Negative: Tender Skin: Negative: Rash Extremities: Absent: edema - Labs and Meds Comprehensive Metabolic Panel 05/05/16 Range/Units 05:24 Sodium 136 L (137-145) mmol/L Potassium 4.6 (3.6-5.0) mmol/L Chloride 96.4 L (98-107) mmol/L Carbon Dioxide 28 (22-30) mmol/L BUN 21 H (9-20) mg/dL Creatinine 1.2 (0.8-1.5) mg/dL Glucose 94 (75-100) mg/dL Calcium 8.2 L (8.4-10.2) mg/dL - Imaging and Cardiology EKG: image reviewed Echo: report reviewed Cardiac cath: report reviewed (patent coronaries and ef 15%) - Telemetry EKG Rhythm: Sinus Rhythm - EKG Sinus rhythms and dysrhythmias: sinus rhythm AV and intraventricular conduction: right bundle branch block QRS axis and voltage: left axis deviation Repolarization changes or abnormalities: ST or T wave suggestive of ischemia Myocardial infarction: septal [place] (old age or ind, anterior [place] (old age or i
[2016-05-05] MEDS: MORPHINE IV PRN (11:49)
[2016-05-05] MEDS: PERCOCET 5/325 PO PRN (20:34)
--- NOTE | 2016-05-06 04:50 | Progress Note ---
Assessment and Plan - Patient Problems (1) Acute systolic heart failure Current Visit: Yes Status: Acute Plan to address problem: Cardiology consulted: continue current therpay, Pending life Vest placement. (2) Tobacco abuse Current Visit: Yes Status: Chronic Plan to address problem: Pt counseled (3) Accelerated hypertension Current Visit: Yes Status: Resolved Plan to address problem: Continue current care, monitor bp q shift (4) DVT prophylaxis Current Visit: Yes Status: Acute History Interval history: Pt resting in bed, No reported nursing events. Pt denies CP, Palpitiation, NVD, difficulty breathing. Pt medically optimized, and discharged. Pt awaiting life vest placement at this time. Hospitalist Physical - Constitutional Vitals: Temp Pulse Resp BP Pulse Ox 98.1 F 77 20 118/75 97 05/06/16 01:14 05/06/16 01:14 05/06/16 01:14 05/06/16 01:14 05/06/16 01:14 General appearance: Present: no acute distress, cachectic - EENT Eyes: Present: PERRL, EOM intact ENT: hearing intact - Neck Neck: Present: supple - Respiratory Respiratory: bilateral: CTA - Cardiovascular Rhythm: regular Heart Sounds: Present: S1 & S2 - Extremities Extremities: no ischemia Peripheral Pulses: within normal limits - Abdominal General gastrointestinal: soft, non-tender, non-distended - Integumentary Integumentary: Present: clear, dry - Psychiatric Psychiatric: appropriate mood/affect, cooperative - Neurologic Neurologic: CNII-XII intact Results - Labs CBC & Chem 7: 04/30/16 17:16 05/05/16 05:24 Labs: Laboratory Last Values WBC 5.1 K/mm3 (4.5-11.0) 04/30/16 17:16 RBC 2.77 M/mm3 (3.65-5.03) L 04/30/16 17:16 Hgb 10.9 gm/dl (11.8-15.2) L 04/30/16 17:16 Hct 33.8 % (35.5-45.6) L 04/30/16 17:16 MCV 122 fl (84-94) H 04/30/16 17:16 MCH 39 pg (28-32) H 04/30/16 17:16 MCHC 32 % (32-34) 04/30/16 17:16 RDW 23.1 % (13.2-15.2) H 04/30/16 17:16 Plt Count 257 K/mm3 (140-440) 04/30/16 17:16 Lymph % (Auto) 32.2 % (13.4-35.0) 04/30/16 17:16 [place] % (Auto) 7.0 % (0.0-7.3) 04/30/16 17:16 Eos % (Auto) 0.6 % (0.0-4.3) 04/30/16 17:16 Baso % (Auto) 0.8 % (0.0-1.8) 04/30/16 17:16 Lymph # 1.7 K/mm3 (1.2-5.4) 04/30/16 17:16 [place] # 0.4 K/mm3 (0.0-0.8) 04/30/16 17:16 Eos # 0.0 K/mm3 (0.0-0.4) 04/30/16 17:16 Baso # 0.0 K/mm3 (0.0-0.1) 04/30/16 17:16 Seg Neutrophils % 59.4 % (40.0-70.0) 04/30/16 17:16 Seg Neutrophils # 3.0 K/mm3 (1.8-7.7) 04/30/16 17:16 PT 15.7 Sec. (12.2-14.9) H 05/04/16 05:10 INR 1.26 (0.87-1.13) H 05/04/16 05:10 APTT 32.6 Sec. (24.2-36.6) 05/04/16 05:10 Sodium 136 mmol/L (137-145) L 05/05/16 05:24 Potassium 4.6 mmol/L (3.6-5.0) 05/05/16 05:24 Chloride 96.4 mmol/L (98-107) L 05/05/16 05:24 Carbon Dioxide 28 mmol/L (22-30) 05/05/16 05:24 Anion Gap 16 mmol/L 05/05/16 05:24 BUN 21 mg/dL (9-20) H 05/05/16 05:24 Creatinine 1.2 mg/dL (0.8-1.5) 05/05/16 05:24 Estimated GFR > 60 ml/min 05/05/16 05:24 BUN/Creatinine Ratio 17.50 % 05/05/16 05:24 Glucose 94 mg/dL (75-100) 05/05/16 05:24 POC Glucose 81 (70-105) 05/04/16 07:13 Calcium 8.2 mg/dL (8.4-10.2) L 05/05/16 05:24 Magnesium 1.7 mg/dL (1.7-2.3) 05/02/16 05:13 Troponin T < 0.010 ng/mL (0.00-0.029) 04/30/16 17:16 NT-Pro-B Natriuret Pep 63303 pg/mL (0-900) H 04/30/16 17:16 Urine Color Dark yellow (Yellow) 04/30/16 17:08 Urine Turbidity Clear (Clear) 04/30/16 17:08 Urine pH 5.0 (5.0-7.0) 04/30/16 17:08 Ur Specific [place] 1.031 (1.003-1.030) H 04/30/16 17:08 Urine Protein 100 mg/dl mg/dL (Negative) 04/30/16 17:08 Urine Glucose (UA) Neg mg/dL (Negative) 04/30/16 17:08 Urine Ketones Neg mg/dL (Negative) 04/30/16 17:08 Urine Blood Neg (Negative) 04/30/16 17:08 Urine Nitrite Neg (Negative) 04/30/16 17:08 Urine Bilirubin Neg (Negative) 04/30/16 17:08 Urine Urobilinogen 2.0 mg/dL (<2.0) 04/30/16 17:08 Ur Leukocyte Esterase Neg (Negative) 04/30/16 17:08 Urine WBC (Auto) 1.0 /HPF (0.0-6.0) 04/30/16 17:08 Urine RBC (Auto) 3.0 /HPF (0.0-6.0) 04/30/16 17:08 U Epithel Cells (Auto) < 1.0 /HPF (0-13.0) 04/30/16 17:08 Urine Mucus 2+ /HPF 04/30/16 17:08
[2016-05-06] MEDS: LASIX PO SCH (06:38)
[2016-05-06] MEDS: PERCOCET 5/325 PO PRN (09:44)
[2016-05-06] MEDS: LOVENOX SUB-Q SCH (09:44)
[2016-05-06] MEDS: COREG PO SCH (09:44)
[2016-05-06] MEDS: ASPIRIN PO SCH (09:44)
[2016-05-06] MEDS: COZAAR PO SCH (09:44)
[2016-05-06] MEDS: ALDACTONE PO SCH (09:44)
[2016-05-06] MEDS: PROTONIX PO SCH (09:44)
[2016-05-06] MEDS: K-DUR PO SCH (09:45)
--- NOTE | 2016-05-06 10:43 | Progress Note ---
Assessment and Plan He may be discharged home from a cardiac standpoint. Follow-up at our office in one to 2 weeks. - Patient Problems (1) Acute systolic heart failure Current Visit: Yes Status: Acute (2) NSVT (nonsustained ventricular tachycardia) Current Visit: Yes Status: Acute (3) Non-ischemic cardiomyopathy Current Visit: Yes Status: Acute (4) Accelerated hypertension Current Visit: Yes Status: Acute Subjective Date of service: 05/06/16 Principal diagnosis: acute systolic heart failure, NICMP, NSVT, Accelerated HTN Interval history: He feels fine. No complaints. He has received his life vest. Objective Vital Signs Last Vital Signs Temp 98.3 F 05/06/16 06:30 Pulse 73 05/06/16 08:05 Resp 21 05/06/16 06:30 BP 118/83 05/06/16 06:30 Pulse Ox 97 05/06/16 06:30 - Physical Examination General: No Apparent Distress HEENT: Positive: Normocephaly, Mucus Membranes Moist Neck: Positive: neck supple, trachea midline Cardiac: Positive: Reg Rate and Rhythm, S1/S2 Lungs: Positive: clear to auscultation Neuro: Positive: Grossly Intact Abdomen: Positive: Soft, Active Bowel Sounds. Negative: Tender Skin: Negative: Rash Musculoskeletal: Normal Range of Motion Extremities: Absent: edema - Imaging and Cardiology EKG: image reviewed Echo: report reviewed Cardiac cath: report reviewed (patent coronaries and ef 15%) - EKG Sinus rhythms and dysrhythmias: sinus rhythm AV and intraventricular conduction: right bundle branch block QRS axis and voltage: left axis deviation Repolarization changes or abnormalities: ST or T wave suggestive of ischemia Myocardial infarction: septal IN (old age or ind, anterior IN (old age or i
--- NOTE | 2016-05-06 10:53 | Discharge Summary ---
Providers - Providers Date of Admission: 04/30/16 23:21 Attending physician: CANDELARIO NG 05/01/16 00:32 Consult to Physician [CONS] Routine Consulting Provider: NUSRAT VALDEZ Reason For Exam: new onset CHF Place consult to:: dr valdez Notified:: dr valdez 05/04/16 09:39 Consult to Cardiac Rehabilitation [CONS] Routine Reason For Exam: Cardiac Rehab Evaluation Primary care physician: [employer] Hospitalization Condition: Stable Disposition: DISCHARGED TO HOME OR SELFCARE - Discharge Diagnoses (1) Acute systolic heart failure Status: Acute (2) Tobacco abuse Status: Chronic (3) Accelerated hypertension Status: Acute (4) DVT prophylaxis Status: Acute Core Measure Documentation - Palliative Care Palliative Care/ Comfort Measures: Not Applicable Exam - Constitutional Vitals: Temp Pulse Resp BP Pulse Ox 98.3 F 73 21 118/83 97 05/06/16 06:30 05/06/16 08:05 05/06/16 06:30 05/06/16 06:30 05/06/16 06:30 Plan Follow up with: SAROJ TREJO MD [Primary Care Provider] - 7 Days (Please Check potassium in the office visit.) VAIBHAV MASON MD [Staff Physician] - 14 Days Prescriptions: Carvedilol [Coreg] 12.5 mg PO BID #60 tablet Furosemide [Lasix TAB] 40 mg PO DAILY #30 tablet Losartan [Cozaar] 100 mg PO QDAY #30 tablet Potassium Chloride [K-Dur] 10 meq PO QDAY #30 tablet Spironolactone [Aldactone] 25 mg PO QDAY #30 tablet
[2016-05-06 13:08] VITALS: BP 135/86
--- NOTE | 2016-05-12 00:27 | Physician Progress Note ---
ASSESSMENT AND PLAN: Acute systolic heart failure, ejection fraction 25%. The patient is on IV Lasix 40 mg daily, continue beta blockers, and RAMANDEEP inhibitors. Echo was done, which shows ejection fraction of 25%. Cardiac catheterization was done this morning and it shows nonobstructive cardiomyopathy. Per cardiology recommendation, the patient needs follow up as an outpatient in Cardiology Clinic with Dr. Lee for possible assessment of ICD placement, cardiomyopathy, ischemic evaluation was done, and it shows nonobstructive cardiomyopathy with ejection fraction of 25%, accelerated hypertension. BP is well controlled. Renal insufficiency, improved. Anemia, chronic, stable. Tobacco use. The patient is counseled and he plans to stop prophylaxis on Lovenox. DISPOSITION: The patient will be discharged once he is stable. INTERVAL HISTORY: The patient was seen and evaluated in the morning before he went to cardiac catheterization, he did not have any problems and I saw him also after cardiac catheterization. The patient tolerated the procedure well. He did not have any chest pain. PHYSICAL EXAMINATION: GENERAL: The patient is not in cardiopulmonary distress. VITAL SIGNS: Temperature 98.5, pulse rate 76, respiratory rate 16, blood pressure 120/70, pulse ox 97% at room air. HEENT: Head exam unremarkable. No icterus or sclera. NECK: Without JVD, thyromegaly, or carotid bruits. CHEST: Lungs are clear to auscultation bilaterally. CARDIAC EXAM: Regular rate and rhythm. No murmur or gallop. ABDOMINAL EXAMINATION: Soft, nontender, no organomegaly. EXTREMITIES: No edema. NEUROLOGIC: Alert and oriented x3. No focal weakness. LABORATORY DATA: WBC is 5.1, hemoglobin 10.9, hematocrit 33.8, platelet count 257. Sodium 141, potassium 3.8, chloride 101.6, bicarbonate 28, BUN 21, creatinine 1.3, glucose 78. PLAN: We will follow the patient in the hospital and he is stable, he can be discharged tomorrow. JOB# [id number] AMG/NTS
== END 2016-05-06 14:50 | disposition home or self-care (01) | DRG 286 ==
LOC: ED 15:44 → 4A 23:21
PROVIDERS: ADMIT Internal Medicine; ATTEND Internal Medicine
PROC: 4A023N7 Measurement of Cardiac Sampling and Pressure, Left Heart, Percutaneous Approach (ICD-10-PCS; principal; 2016-05-04)
PROC: B2111ZZ Fluoroscopy of Multiple Coronary Arteries using Low Osmolar Contrast (ICD-10-PCS; 2016-05-04)
PROC: B2151ZZ Fluoroscopy of Left Heart using Low Osmolar Contrast (ICD-10-PCS; 2016-05-04)
DX: I13.0 Hypertensive heart and chronic kidney disease with heart failure and stage 1 through stage 4 chronic kidney disease, or unspecified chronic kidney disease (principal); I50.21 Acute systolic (congestive) heart failure; N17.9 Acute kidney failure, unspecified; I47.2 Ventricular tachycardia; I42.0 Dilated cardiomyopathy; F17.210 Nicotine dependence, cigarettes, uncomplicated; D64.9 Anemia, unspecified; N18.9 Chronic kidney disease, unspecified; Z91.14 Patient's other noncompliance with medication regimen; Z80.9 Family history of malignant neoplasm, unspecified; Z71.6 Tobacco abuse counseling; Z98.890 Other specified postprocedural states
CPT/HCPCS: 36415; 71020; 80048; 81001; 82962; 83735; 83880; 84484; 85025; 85610; 85730; 93005; 93010; 93306; 93458; 94660; 94760; 96374; 99406; C1894; J0360; J0583; J1644; J1650; J1940; J2250; J2270; J3010; J7050; Q9967

== ENCOUNTER 2017-12-13 14:57 | Emergency (ER) | payer MEDICARE ==
--- NOTE | 2017-12-13 18:10 | Emergency Department Report ---
ED Extremity Problem HPI - General Chief complaint: Extremity Problem,Nontraumatic Stated complaint: PULLED OUT MIDLINE Time Seen by Provider: 12/13/17 17:52 Source: patient, EMS Mode of arrival: Stretcher Limitations: No Limitations - History of Present Illness Initial comments: 72-year-old male with past medical history of dm, chronic ulcers, and hypertension presents from [facility] with complaint of dislodged PICC line. No other complaints reported by [facility]. Patient has several chronic wounds and if his the patient has been bacteremic and had MRSA infection of previous ORIF site according to paperwork presented with patient. Most recent antibiotic on med list is Ancef, pt denies any symptoms. - Related Data Previous Rx's Medication Instructions Recorded Last Taken Type Carvedilol [Coreg] 12.5 mg PO BID #60 tablet 05/04/16 Unknown Rx Furosemide [Lasix TAB] 40 mg PO DAILY #30 tablet 05/04/16 Unknown Rx Losartan [Cozaar] 100 mg PO QDAY #30 tablet 05/04/16 Unknown Rx Potassium Chloride [K-Dur] 10 meq PO QDAY #30 tablet 05/04/16 Unknown Rx Spironolactone [Aldactone] 25 mg PO QDAY #30 tablet 05/04/16 Unknown Rx Allergies Allergy/AdvReac Type Severity Reaction Status Date / Time No Known Allergies Allergy Unverified 04/30/16 16:49 ED Review of Systems ROS: Stated complaint: PULLED OUT MIDLINE Other details as noted in HPI Comment: All other systems reviewed and negative ED Past Medical Hx - Past Medical History Previous Medical History?: Yes Hx Hypertension: Yes (HTN) Hx Congestive Heart Failure: No (new onset 04/30/16 BNP: 18,400) Hx Diabetes: Yes Hx Arthritis: Yes Hx Asthma: No Hx COPD: No - Surgical History Past Surgical History?: Yes Additional Surgical History: right bka - Social History Smoking Status: Never Smoker Substance Use Type: None - Medications Home Medications: Home Medications Medication Instructions Recorded Confirmed Last Taken Type Carvedilol [Coreg] 12.5 mg PO BID #60 tablet 05/04/16 Unknown Rx Furosemide [Lasix TAB] 40 mg PO DAILY #30 tablet 05/04/16 Unknown Rx Losartan [Cozaar] 100 mg PO QDAY #30 tablet 05/04/16 Unknown Rx Potassium Chloride [K-Dur] 10 meq PO QDAY #30 tablet 05/04/16 Unknown Rx Spironolactone [Aldactone] 25 mg PO QDAY #30 tablet 05/04/16 Unknown Rx ED Physical Exam - General Limitations: No Limitations - Other Other exam information: General: No limitations, patient is alert in no acute distress Head exam: Atraumatic, normocephalic Eyes exam: Normal appearance ENT: Moist mucous membrane, normal oropharynx Neck exam: Normal inspection, full range of motion, no meningismus nontender Respiratory exam: Clear to auscultation bilateral, no wheezes, rales, crackles Cardiovascular: Normal rate and rhythm, normal heart sounds Abdomen: Soft, nondistended, and nontender, with normal bowel sounds, no rebound, or guarding Extremity: Right leg BKA. Left arm PICC line completely out without any signs of bleeding or swelling Back: Normal Inspection, full range of motion, no tenderness Neurologic: Alert, cranial nerves intact, no motor or sensory deficit Psychiatric: normal affect, normal mood Skin: Chronic ulcers to left leg and sacrum ED Course Vital Signs 12/13/17 16:07 Temperature 97.9 F Pulse Rate 86 Respiratory 18 Rate Blood Pressure 135/93 O2 Sat by Pulse 94 Oximetry ED Medical Decision Making - Lab Data Result diagrams: 12/13/17 18:34 12/13/17 18:34 Lab Results 12/13/17 12/13/17 Range/Units 18:34 18:34 WBC 5.5 (4.5-11.0) K/mm3 RBC 2.71 L (3.65-5.03) M/mm3 Hgb 9.4 L (11.8-15.2) gm/dl Hct 26.9 L (35.5-45.6) % MCV 100 H (84-94) fl MCH 35 H (28-32) pg MCHC 35 H (32-34) % RDW 21.3 H (13.2-15.2) % Plt Count 417 (140-440) K/mm3 Lymph % (Auto) 21.5 (13.4-35.0) % Person % (Auto) 7.7 H (0.0-7.3) % Eos % (Auto) 0.7 (0.0-4.3) % Baso % (Auto) 1.1 (0.0-1.8) % Lymph # 1.2 (1.2-5.4) K/mm3 Person # 0.4 (0.0-0.8) K/mm3 Eos # 0.0 (0.0-0.4) K/mm3 Baso # 0.1 (0.0-0.1) K/mm3 Seg Neutrophils % 69.0 (40.0-70.0) % Seg Neutrophils # 3.8 (1.8-7.7) K/mm3 Sodium 131 L (137-145) mmol/L Potassium 4.5 (3.6-5.0) mmol/L Chloride 94.5 L (98-107) mmol/L Carbon Dioxide 25 (22-30) mmol/L Anion Gap 16 mmol/L BUN 12 (9-20) mg/dL Creatinine 0.4 L (0.8-1.5) mg/dL Estimated GFR > 60 ml/min BUN/Creatinine Ratio 30 % Glucose 88 (75-100) mg/dL Calcium 9.1 (8.4-10.2) mg/dL - Medical Decision Making Patient's lab reviewed and compared to previous without acute abnormality. IV placed so that patient may continue IV meds. The patient will be [facility] to [facility] to arrange for outpatient replacement - Differential Diagnosis Picc line dislodgement, hyponatremia Critical Care Time: No Critical care attestation.: If time is entered above; I have spent that time in minutes in the direct care of this critically ill patient, excluding procedure time. ED Disposition Clinical Impression: Complication associated with peripherally inserted central catheter, PIC line ( peripherally inserted central catheter) removal Disposition: DC-01 TO HOME OR SELFCARE Is pt being admited?: No Does the pt Need Aspirin: No Condition: Stable Instructions: Peripherally Inserted Central Catheters and Midline Catheters (ED ) Additional Instructions: PICC line cannot be placed in the ER. You need to arrange for outpatient PICC line placement. A peripheral line was placed in order to continue IV medication. Referrals: PRIMARY CARE, [Primary Care Provider] - [facility] Time of Disposition: 19:39
[2017-12-13 19:09] LABS: Basophils # (Auto) 0.1 K/mm3 (0.0-0.1); Basophils % (Auto) 1.1 % (0.0-1.8); Eosinophils % (Auto) 0.7 % (0.0-4.3); Hematocrit 26.9 % (35.5-45.6); Hemoglobin 9.4 gm/dl (11.8-15.2); Lymphocytes # (Auto) 1.2 K/mm3 (1.2-5.4); Lymphocytes % (Auto) 21.5 % (13.4-35.0); Mean Corpuscular HGB Conc 35 % (32-34); Mean Corpuscular Hemoglobin 35 pg (28-32); Mean Corpuscular Volume 100 fl (84-94); Monocytes # (Auto) 0.4 K/mm3 (0.0-0.8); Monocytes % (Auto) 7.7 % (0.0-7.3); Platelet Count 417 K/mm3 (140-440); Red Blood Count 2.71 M/mm3 (3.65-5.03); Red Cell Distribution Width 21.3 % (13.2-15.2)
[2017-12-13 19:14] LABS: BUN/Creatinine Ratio 30; Blood Urea Nitrogen 12 mg/dL (9-20); Calcium 9.1 mg/dL (8.4-10.2); Hemolysis Index 17
[2017-12-13 20:09] VITALS: BP 148/94
== END 2017-12-13 21:40 | disposition home or self-care (01) ==
LOC: ED 14:57
DX: T80.211A Bloodstream infection due to central venous catheter, initial encounter (principal); I10 Essential (primary) hypertension; E11.9 Type 2 diabetes mellitus without complications; M19.90 Unspecified osteoarthritis, unspecified site; Z89.511 Acquired absence of right leg below knee
CPT/HCPCS: 36415; 80048; 85025; 99283